=== PATIENT | female | born 1970 | race Caucasian/White ===

== ENCOUNTER 2024-11-24 09:59 | Emergency (ER) | payer OTHER, SELFPAY ==
--- NOTE | ~2024-11-24 | XR_ITS ---
Clinical Indication: Cough PA and lateral views of the chest: Comparison: None Findings: Questional subtle 6 mm right midlung nodule versus nipple shadow. Left lung clear. Cardiom ediastinal silhouette is within normal limits. Bones and soft tissues are unremarkable. Impression: Questionable subtle 6 mm right midlung nodule versus nipple shadow. Consider chest CT or repeat exam with nipple marker, to further assess. Reviewed, dictated and finalized at location . Impression: Questionable subtle 6 mm right midlung nodule versus nipple shadow. Consider ch est CT or repeat exam with nipple marker, to further assess.
--- OUTSIDE RECORDS SUMMARY | 2024-11-24 10:01 | XMS_ITS ---
Author Organization [facility] Address [address] [place] [address] Care Team Providers Care Foreign Agent Name Role Phone Johnny MILLAN, Dr Espino Primary Care Provider Kenan Rhodes Unavailable [phone] EnriqueYaniv Unavailable [phone] REASON FOR VISIT SCIT - Traditional Schedule Allergy Immunotherapy Medications Medication SIG (Take, Route, Frequency, Duration) Notes Start Date End Date Status Cetirizine HCl 10 MG 1 tab(s) orally once a day for 30 days Active TRIAMCINOLONE TOPICAL 0.1% 1 valery applied topically 3 times a day for 7 days Active VANICREAM MOISTURIZING CREAM N/A NECESSARY APPLY TO EXTERNAL SURFACES OFTEN NEEDED TO FACE, HANDS, FEET OR BODY FOR DAILY USE BY THE ENTIRE FAMILY for 30 DAYS *Please review for potential replacement for e-prescription and drug interaction check* Active Fluticasone Propionate 50 MCG/ACT 2 spray(s) in each nostril BID for 30 day(s) Active BENADRYL 25 mg 1 cap(s) orally 3 times a day Not-Taking FLUTICASONE NASAL 50 mcg/inh 2 spray(s) in each nostril BID for 30 day(s) Active CETIRIZINE 10 mg 1 tab(s) orally once a day for 30 days Active CETIRIZINE 10 mg 1 tab(s) orally once a day for 30 days Active FLUTICASONE NASAL 50 mcg/inh 2 spray(s) in each nostril BID for 30 day(s) Active AUVI -Q 0.3 mg as directed intramuscularly once for 30 days Active NASAL WASHES N/A DIRECTED INTRANASALLY NEEDED for 30 *Please review for potential replacement for e-prescription and drug interaction check* Active Auvi-Q 0.3 MG/0.3ML as directed intramuscularly once for 30 days Active Benadryl Allergy 25 MG 1 cap(s) orally 3 times a day Not-Taking SIT (TRADITIONAL) VARIABLE PER SCHEDULE SC PER SCHEDULE *Please review for potential replacement for e-prescription and drug interaction check* Active Triamcinolone Acetonide 0.1 % 1 valery applied topically 3 times a day for 7 days Active Encounters Encounter Location Date Provider Diagnosis [facility] [address] [facility] [address] [place] [id number] 10/17/2024 Yaniv Nunez Allergic rhinitis du e to pollen J30.1 ; Other allergic rhinitis J30.89 ; Allergic rhinitis due to animal (cat) (dog) hair and dander J30.81 and Other chronic allergic conjunctivitis H10.45 Assessments Encounter Date Diagnosis (ICD Code) Assessment Notes Treatment Notes Treatment Clinical Notes Section Notes 10/17/2024 Allergic rhinitis due to pollen (ICD-10 - J30.1) 10/17/2024 Other allergic rhinitis (ICD-10 - J30.89) 10/17/2024 Allergic rhinitis due to animal (cat) (dog) hair and dander (ICD-10 - J30.81) 10/17/2024 Other chronic allergic conjunctivitis (ICD-10 - H10.45) Plan Of Treatment Next Appt Details Follow Up: 1 Week, Reason: Provider Name:Yaniv Nunez , 12/20/2024 04:50:00 PM, [address] [employer] [address], [id number], Provider Name:Yaniv Nunez , 01/17/2025 04:50:00 PM, [address] [employer] [address] [place] [address], [phone], Progress Notes * Steffi ROBERTSONDOB:1970 ( 54 yo F)Acc No.[id number]:10/17/2024 SCIT-Aeroallergen Patient: Bijal COYNE Steffi Provider: Basim Nunez MD :1970 A ge:54 Y S ex:Female Date:10/17/2024 Address:[address] [place], [id number] Pcp:Dr Srinivas Turner MD Subjective: * Chief Complaints: * S CIT - Traditional Schedule Allergy Immunotherapy * HPI: * Introduction: The patient is here for scheduled immunotherapy. Please see the attached specialty form regarding the specifics of the administration of these vaccines. As per our protocol, they must undergo a screening health questionnaire (medication changes, reaction(s) to last immunotherapy dose(s), current health status, ACT (if appropriate), self-injectable epinephrine on patient(?) and peak flow (if appropriate)). Also, the patient must wait in our office for 30 minutes after receiving the vaccine(s). Furthermore, every patient must have an epinephrine pen (self-injectable) with them at the time of administration--and carry if for the following 1.5 hours after they leave our office. The patient must also have taken their antihistamine the day of the injection, preferably 2 hours prior. The consent form for SCIT (subcutaneous immunotherapy) is on file. * Medical History: * Surgical History: * Hospitalization/Major Diagno stic Procedure: * Medications: T akingCETIRIZINE 10 mg tablet 1 tab(s) orally once a day FLUTICASONE NASAL 50 mcg/inh spray 2 spray(s) in each nostril BID CETIRIZINE 10 mg tablet 1 tab(s) orally once a day FLUTICASONE NASAL 50 mcg/inh spray 2 spray(s) in each nostril BID AUVI -Q 0.3 mg kit as directed intramuscularly once TRIAMCINOLONE TOPICAL 0.1% ointment 1 valery applied topically 3 times a day Cetirizine HCl 10 MG Tablet 1 tab(s) orally once a day Fluticasone Propionate 50 MCG/ACT Suspension 2 spray(s) in each nostril BID VANICREAM MOISTURIZING CREAM N/A MOISTURIZING CREAM NECESSARY APPLY TO EXTERNAL SURFACES OFTEN NEEDED TO FACE, HANDS, FEET OR BODY FOR DAILY USE BY THE ENTIRE FAMILY , Notes to Pharmacist: *Please review for potential replacement for e-prescription and drug interaction check*Auvi-Q 0.3 MG/0.3ML Solution Auto- injector as directed intramuscularly once NASAL WASHES N/A 1 QUART OF STERILIZED TAP WATER OR DISTILLED WATER, 1 TSP NACL, 1 PINCH OF BAKING SODA DIRECTED INTRANASALLY NEEDED , Notes to Pharmacist: *Please review for potential replacement for e-prescription and drug interaction check*SIT (TRADITIONAL) VARIABLE SEE RECORD PER SCHEDULE SC PER SCHEDULE , Notes to Pharmacist: *Please review for potential replacement for e-prescription and drug interaction check*Triamcinolone Acetonide 0.1 % Ointment 1 valery applied topically 3 times a day Taking CETIRIZINE 10 mg tablet 1 tab(s) orally once a day Taking FLUTICASONE NASAL 50 mcg/inh spray 2 spray(s) in each nostril BID Taking CETIRIZINE 10 mg tablet 1 tab(s) orally once a day Taking FLUTICASONE NASAL 50 mcg/inh spray 2 spray(s) in each nostril BID Taking AUVI -Q 0.3 mg kit as directed intramuscularly once Taking TRIAMCINOLONE TOPICAL 0.1% ointment 1 valery applied topically 3 times a day Taking Cetirizine HCl 10 MG Tablet 1 tab(s) orally once a day Taking Fluticasone Propionate 50 MCG/ACT Suspension 2 spray(s) in each nostril BID Taking VANICREAM MOISTURIZING CREAM N/A MOISTURIZING CREAM NECESSARY APPLY TO EXTERNAL SURFACES OFTEN NEEDED TO FACE, HANDS, FEET OR BODY FOR DAILY USE BY THE ENTIRE FAMILY , Notes to Pharmacist: *Please review for potential replacement for e-prescription and drug interaction check*Taking Auvi- Q 0.3 MG/0.3ML Solution Auto-injector as directed intramuscularly once Taking NASAL WASHES N/A 1 QUART OF STERILIZED TAP WATER OR DISTILLED WATER, 1 TSP NACL, 1 PINCH OF BAKING SODA DIRECTED INTRANASALLY NEEDED , Notes to Pharmacist: *Please review for potential replacement for e-prescription and drug interaction check*Taking SIT (TRADITIONAL) VARIABLE SEE RECORD PER SCHEDULE SC PER SCHEDULE , Notes to Pharmacist: *Please review for potential replacement for e-prescription and drug interaction check*Taking Triamcinolone Acetonide 0.1 % Ointment 1 valery applied topically 3 times a day Not-Taking/PRNBENADRYL 25 mg capsule 1 cap(s) orally 3 times a day Benadryl Allergy 25 MG Capsule 1 cap(s) orally 3 times a day Not-Taking/PRN BENADRYL 25 mg capsule 1 cap(s) orally 3 times a day Not-Taking/PRN Benadryl Allergy 25 MG Capsule 1 cap(s) orally 3 times a day Objective: * Vitals: Assessment: * Assessment: 1. A llergic rhinitis due to pollen - J30.1 (Primary) 2 . O ther allergic rhinitis - J30.89 3 . A llergic rhinitis due to animal (cat) (dog) hair and dander - J30.81 4 . O ther chronic allergic conjunctivitis - H10.45 Plan: * Treatment: * Procedure Codes: 9 5117 IMMUNOTHERAPY INJECTIONS * Follow Up: 1 Week * Billing Information: * Visit Code: * Procedure Codes: 00289 IMMUNOTHERAPY INJECTIONS. * E CLERK [employer] Sign off status: Completed true * Provider: Basim Nunez MD Date: 0 10/17/2024 Generated for Joel torres/Mariah/Levi on: 0 11/24/2024 10:01 AM CDT History and Physical Notes * HPI (History of Present Illness) Category Sub-Category Detail Notes Category Not es *Introduction The patient is here for scheduled immunotherapy. Please see the attached specialty form regarding the specifics of the administration of these vaccines. As per our protocol, they must undergo a screening health questionnaire (medication changes, reaction(s) to last immunotherapy dose(s), current health status, ACT (if appropriate), self-injectable epinephrine on patient(?) and peak flow (if appropriate)). Also, the patient must wait in our office for 30 minutes after receiving the vaccine(s). Furthermore, every patient must have an epinephrine pen (self-injectable) with them at the time of administration--and carry if for the following 1.5 hours after they leave our office. The patient must also have taken their antihistamine the day of the injection, preferably 2 hours prior. The consent form for SCIT (subcutaneous immunotherapy) is on file.
--- OUTSIDE RECORDS SUMMARY | 2024-11-24 10:02 | XMS_ITS | Referral Summary ---
Author Organization [facility] Address [address] [place] [address] Care Team Providers Care Library Page Name Role Phone None, Physician Primary Care Provider Unavailabl e Source Comments [facility],non-owned Affiliates and Associated Physician Practices is amultiple site organization consisting of ambulatory clinics and hospital sitesin [place], [place], [place] and [place]. This disclosure is being madepursuant to the Care Everywhere program and may not contain all information available regarding this patient. Last updated 18.[facility] [employer] Allergies Active Allergy Reactions Criticality Noted Date Comments Molds & Smuts Other Medium 12/16/2010 Eczema flairs up, Eczema flairs up, Eczema flairs up Medications * Be aware that medications may not be up to date on this document. Alwaysverify current medications with the patient. Medication Sig Dispensed Refills Start Date End Date Status Hydrocortisone Butyr Lipo Base 0.1 %Indications:Other atopic dermatitis Apply to face daily as needed 30 g 1 07/21/2020 Active triamcinolone acetonide (Kenalog) 0.1 % ointmentIndications: Other atopic dermatitis Apply to affected area on torso and extremities BID. 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 Immunizations Name Administration Dates Next Due INFLUENZA VACCINE 06/02/2021 TDAP (7yrs+) 02/01/2020 Social History Tobacco Use Types Packs/Day Years Used Date Smoking Tobacco: Never Smokeless Tobacco: Never Alcohol Use Standard Drinks/Week Comments Yes 0 (1 standard drink = 0.6 oz pur e alcohol) Sex and Gender Information Value Date Recorded Sex Assigned at Not on file Gender Identity Not on file Sexual Orientation Not on file Last Filed Vital Signs Vital Sign Reading Time Taken Comments Blood Pressure 122/84 05/13/2017 1:05 AM CDT Pulse 86 05/13/2017 1:05 AM CDT Temperature 36.6 C (97.9 F) 05/13/2017 1:05 AM CDT Respiratory Rate 20 05/13/2017 1:05 AM CDT Oxygen Saturation 100% 05/13/2017 12:30 AM CDT Inhaled Oxygen Concentration - - Weight 56.7 kg (125 lb) 05/12/2017 9:02 PM CDT Height 160 cm (5' 3 ) 05/12/2017 9:02 PM CDT Body Mass Index 22.14 05/12/2017 9:02 PM CDT Plan of Treatment Not on file Care Teams Library Page Relationship Specialty Start Date End Date None, Physician [address] [place] [address] PCP - General 07/30/24
--- OUTSIDE RECORDS SUMMARY | 2024-11-24 10:02 | XMS_ITS | Patient Health Summary ---
Author Organization [facility] Address [address] [place] [address] Care Team Providers Care Glass Tube Bender Name Role Phone None, Physician Primary Care Provider Unavailabl e Note from [facility],non-owned Affiliates and Associated Physician Practices is amultiple site organization consisting of ambulatory clinics and hospital sitesin [place], [place], [place] and [place]. This disclosure is being madepursuant to the Care Everywhere program and may not contain all information available regarding this patient. Last updated 18.[facility] Allergies * Molds & Smuts(Other) -Medium Criticality Medications * Be aware that medications may not be up to date on this document. Alwaysverify current medications with the patient. * Hydrocortisone Butyr Lipo Base 0.1 %(Started 07/21/2020) Apply to face daily as needed 1 refill by 07/21/2021 * triamcinolone acetonide (Kenalog) 0.1 % ointment(Started 07/30/2024) Apply to affected area on torso and extremities BID. 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 Immunizations * INFLUENZA VACCINE(Given 06/02/2021) * TDAP (7yrs+)(Given 02/01/2020) Social History Tobacco Use Types Packs/Day Years [...] Mass Index 22.14 05/12/2017 9:02 PM CDT Procedures * MI TANGNTL BX SKIN SINGLE LES(Performed 07/30/2024) Performed for Neoplasm of uncertain behavior * DERMATOPATHOLOGY(Performed 07/30/2024) Performed for Neoplasm of uncertain behavior * HCG URINE QUALITATIVE - POCT (IP) [facility](Performed 05/13/2017) * URINALYSIS REFLEX TO MICROSCOPIC NO CULTURE(Performed 05/13/2017) * CBC W AUTO DIFFERENTIAL(Performed 05/12/2017) * GLUCOSE - POINT OF CARE (AMB) [facility](Performed 05/12/2017) * GLUCOSE - POINT OF CARE (AMB) [facility](Performed 05/12/2017) * CBC W AUTO DIFFERENTIAL(Performed 05/12/2017) * TROPONIN I(Performed 05/12/2017) * CK BLOOD(Performed 05/12/2017) * BASIC METABOLIC PANEL (CALCIUM TOTAL)(Performed 05/12/2017) * GLUCOSE ACCUCHECK(Performed 05/12/2017) * EKG 12-LEAD(Performed 05/12/2017) Results * MI TANGNTL BX SKIN SINGLE LES (07/30/2024 3:57 PM FIRE CHIEF DEPUTY) Narrative Marissa Comer PA - 07/30/2024 3:57 PM FIRE CHIEF DEPUTY BurkeVipul diazena 07/30/2024 4:08 PM Derm - Shave Biopsy Date/Time: 07/30/2024 3:57 PM Performed by: Marissa Comer PA Authorized by: Marissa Comer PA Indication(s): AK vs skin cancer vs eczematous papule Consent given by: patient Consent type: verbal Risks discussed with patient: bleeding, need for further testing/treatment, infection, scar formation, skin color change and non-diagnostic biopsy. Procedure details: Skin prep: isopropyl alcohol Anesthesia: lidocaine 1% with epi Body area 1: Body area: trunk Trunk location: back Lesions in this body area: 1 Total number of lesions: 1 Instrument(s) used: flexible razor blade Hemostasis achieved with aluminum chloride Wound dressing: petrolatum and gauze dressing EBL: less than 5 mL Complications: none Wound care discussed with patient? yes Specimen(s) sent to pathology Marissa CARTAGENA PROCEDURE/MINOR SURG ICAL ORDERABLES * DERMATOPATHOLOGY (Specimen Count = 1) (07/30/2024 12:00 AM FIRE CHIEF DEPUTY) Case Report Dermatopathology Report Case: [id number] Authorizing Provider: Marissa Comer PA Collected: 07/30/2024 12:00 AM Ordering Location: [facility] - Received: 07/30/2024 04:30 PM Dermatology Pathologist: Siobhan Altamirano MD Specimen: Skin, upper back 4:10 PM [facility] Final Diagnosis Specimen A. 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 The specimen consists of a shave biopsy measuring 7x6x1 mm. Jar 0. 4:10 PM [facility] Microscopic Description Specimen A. SKIN, upper back: There are scattered dyskeratotic keratinocytes and vacuolar alteration along the basal cell layer. In addition, an underlying band-like infiltrate composed mostly of lymphocytes focally obscures the dermal-epidermal junction. There is adjacent focal parakeratosis and spongiosis of the epidermis. Grocott's methenamine silver (GMS) stain is negative for fungal elements in the sections examined.Additional deeper sections were obtained and reviewed. COMMENT: These histological findings are favored to represent a lichen planus like keratosis with possible concurrent eczematous dermatitis. Clinical photos provided by the treating clinician were reviewed. Clinicopathologic correlation is recommended. 4 4:10 PM [facility] Disclaimer An external and internal positive and negative controls are appropriate for the histochemical, immunohistochemical and immunofluorescence stain(s) in this case (if any), except where stated explicitly. The performance characteristics of the stain(s) cited in this report were developed and its performance characteristic determined by the Dermatopathology Laboratory at [facility], directed by Dr. Tolu Velázquez. These tests need not be, and therefore are not, approved by the [place] Food and Drug Administration. The tests are used for clinical purposes. Billing Codes Specimen Charges Stain Charges 33716 1 02160 1 4 4:10 PM [facility] Embedded Images 4 4:10 PM [facility] Pathology/Cytolog y TISSUE SPECIMEN FROM SKIN / Unknown 07/30/2024 07/30/2024 4:30 PM FIRE CHIEF DEPUTY Marissa CARTAGENA LAB - PATHOLOGY/CYTO LOGY ORDERABLES DERMATOPATHOLOGY LABORATORY [facility] Department of Dermatology [address], [address] [phone] * HCG URINE QUALITATIVE - POCT (IP) [facility] (05/13/2017 12:06 AM CDT) Test Urine negative [facility] Urine specimen (specimen) 05/13/2017 12:06 AM CDT Narrative [facility] - 05/13/2017 12:06 AM CDT negative Inez Jonas MD LAB - POINT OF CARE ORDERABLES [facility] * (ABNORMAL) URINALYSIS REFLEX TO MICROSCOPIC NO CULTURE (05/13/2017 12:05 AM CDT) Color UA Straw Straw, Yellow, Colorless, Light Yellow [facility] Clarity UA Clear Clear [facility] Specific Gibson UA 1.002 1.001 - 1.030 [facility] pH UA 5.0 5.0 - 8.0 [facility] Protein UA Negative <=20 mg/dL [facility] Glucose UA Negative Negative mg/dL [facility] Ketone UA 15(A) Negative mg/dL [facility] Bilirubin UA Negative Negative mg/dL [facility] Blood UA Negative Negative [facility] Nitrite UA Negative Negative [facility] Leukocyte Esterase Negative Negative [facility] Urobilinogen UA <2.0 <2.0 mg/dL [facility] RBC UA 5 0 - 8 /HPF [facility] WBC UA 1 0 - 2 /HPF [facility] Squamous Epithelial Cells UA 1 0 - 1 /HPF [facility] Mucus UA Rare(A) None /LPF [facility] Urine specimen (specimen) 05/13/2017 12:05 AM CDT 05/13/2017 12:13 AM CDT Inez Jonas MD LAB - URINALYSIS ORD ERABLES [address] [phone] * (ABNORMAL) CBC W AUTO DIFFERENTIAL (05/12/2017 11:19 PM CDT) Only the most recent of2 resultswithin the time period is included. WBC 14.6(H) 3.5 - 10.5 10 3/uL [facility] RBC 3.96 3.90 - 5.00 10 6/uL [facility] Hemoglobin 12.7 12.0 - 15.5 g/dL [facility] Hematocrit 37.3 35.0 - 45.0 % [facility] MCV 94.2 81.0 - 97.0 fL [facility] MCH 32.1 28.0 - 34.0 pg [facility] MCHC 34.0 32.0 - 36.0 g/dL [facility] Platelet Count 135(L) 150 - 400 10 3/uL [facility] RDW-SD 44.1 36.0 - 50.0 fL [facility] RDW-CV 12.8 11.2 - 14.8 % [facility] MPV 12.3 9.3 - 12.8 fL [facility] nRBC Absolute 0.00 0 10 3/uL [facility] nRBC Auto 0.0 0 /100 WBC [facility] Neutrophils % 85.8(H) 35.0 - 70.0 % [facility] Lymphocytes % 4.5(L) 19.7 - 55.1 % [facility] Monocytes % 9.5 3.0 - 15.0 % [facility] Eosinophils % 0.1 0.0 - 6.0 % [facility] Basophil % 0.1 0.0 - 1.5 % [facility] Neutrophils Absolute 12.5(H) 1.6 - 7.0 10 3/uL [facility] Lymphocyte Absolute 0.7(L) 0.8 - 2.9 10 3/uL [facility] Monocytes Absolute 1.39(H) 0.14 - 0.66 10 3/uL [facility] Eosinophils Absolute 0.01 0.00 - 0.22 10 3/uL [facility] Basophils Absolute 0.01 0.00 - 0.06 10 3/uL [facility] Immature Granulocytes % 0.3 0.0 - 1.0 % [facility] Blood specimen (specimen) BLOOD SPECIMEN / Unknown 05/12/2017 11:19 PM CDT 05/12/2017 11:23 PM CDT Inez Jonas MD LAB - HEMATOLOGY ORD ERABLES [address] [phone] * GLUCOSE - POINT OF CARE (AMB) [facility] (05/12/2017 11:19 PM CDT) Only the most recent of2 resultswithin the time period is included. Inez Jonas MD LAB - POINT OF CARE ORDERABLES [facility] RADIOLOG[facility] * TROPONIN I (05/12/2017 11:18 PM CDT) Troponin I 0.015 <0.032 ng/mL [facility] Blood specimen (specimen) BLOOD SPECIMEN / Unknown 05/12/2017 11:18 PM CDT 05/12/2017 11:23 PM CDT Inez Jonas MD LAB - CHEMISTRY [facility] Performing Organization Address [facility]/ZIP Co de Phone Number [address] [phone] * (ABNORMAL) BASIC METABOLIC PANEL (CALCIUM TOTAL) (05/12/2017 11:18 PM CDT) BUN 16 7 - 26 mg/dL [facility] Creatinine 1.1 0.6 - 1.2 mg/dL [facility] Sodium 140 136 - 145 mmol/L [facility] Potassium 3.7 3.5 - 4.5 mmol/L [facility] Chloride 108(H) 98 - 107 mmol/L [facility] CO2 20(L) 22 - 29 mmol/L [facility] Glucose 78 70 - 115 mg/dL [facility] Calcium 8.6 8.4 - 10.2 mg/dL [facility] Anion Gap 16 8 - 18 [facility] BUN/Creatinine Ratio 15 7 - 23 [facility] Osmolality Calculated 290 270 - 300 mOsm/kg [facility] eGFR 53(L) >60 mL/min/1.7 3 m2 [facility] Blood specimen (specimen) BLOOD SPECIMEN / Unknown 05/12/2017 11:18 PM CDT 05/12/2017 11:23 PM CDT Inez Jonas MD LAB - CHEMISTRY [facility] DORSY[facility] [address] [phone] * (ABNORMAL) CK BLOOD (05/12/2017 11:18 PM CDT) CK Total 204(H) 30 - 200 Units/L [facility] Blood specimen (specimen) BLOOD SPECIMEN / Unknown 05/12/2017 11:18 PM CDT 05/12/2017 11:23 PM CDT Inez Jonas MD LAB - CHEMISTRY [facility] DOR[facility] [address] [place] [address] * GLUCOSE ACCUCHECK (05/12/2017 11:14 PM CDT) Glucose, Fingerstick 82 70-115mg/d L mg/dL [facility] Comment:[employer]: PHAM Gu 05/12/2017 11:1 4 PM CDT Ayush Romo MD LAB - CHEMISTRY [facility] Performing Organization Address [facility] Co de Phone Number [facility] * EKG 12-LEAD (05/12/2017 12:00 AM CDT) EKG [facility] Comment: Exam Date/Time: May 12 2017 23:18:19 Test Reason : syncope Blood Pressure : / mmHG Vent. Rate : 068 BPM Atrial Rate : 068 BPM P-R Int : 148 ms QRS Dur : 074 ms QT Int : 456 ms P-R-T Axes : 071 057 040 degrees QTc Int : 484 ms Normal sinus rhythm Possible Left atrial enlargement Prolonged QT Abnormal ECG No previous ECGs available Confirmed by CHANG MILLAN, P ([id number]), video news editor Mesfin Granados ([id number]) on 05/22/2017 10:49:04 AM Referred By: REFERRING NO Confirmed By:Basim DOWNING MD 05/12/2017 Inez Jonas MD ECG ORDERABLES [facility] Care Teams Glass Tube Bender Relationship Specialty Start Date End Date None, Physician [address] [place] [address] PCP - General 07/30/24
--- OUTSIDE RECORDS SUMMARY | 2024-11-24 10:02 | XMS_ITS | Clinical Summary ---
Author Organization [facility] Address [address] [place] [address] Care Team Providers Care Swedger Name Role Phone Srinivas Turner MD Primary Care Provider [phone] Allergies No known active allergies Medications No known medications Active Problems Problem Noted Date Diagnosed Date Screen for colon cancer 09/22/2021 Overview (09/22/2021): Added automatically from request for surgery [id number] Family History Medical History Relation Comments Breast Cancer Maternal Aunt 1 Breast Cancer Maternal Aunt 2 Relation Status Comments Maternal Aunt 1 Maternal Aunt 2 Social History Tobacco Use Types Packs/Day Years Used Date Smoking Tobacco: Never Smokeless Tobacco: Never Alcohol Use Standard Drinks/Week Comments Yes 0 (1 standard drink = 0.6 oz pur e alcohol) Socially PHQ-2 Answer Date Recorded PHQ-2 Score - If the patient scores above 3, please move on to questions 3-9 0 09/18/2021 Comments No Sex and Gender Information Value Date Recorded Sex Assigned at Not on file Legal Sex Female 7:59 PM CDT Gender Identity Female 09/18/2021 3:50 PM BEHAVIORAL SERVICES TECH Sexual Orientation Not on file Last Filed Vital Signs Vital Sign Reading Time Taken Comments Blood Pressure 134/80 10/02/2021 12:15 PM BEHAVIORAL SERVICES TECH Pulse 92 10/02/2021 11:30 AM BEHAVIORAL SERVICES TECH Temperature 36.2 C (97.2 F) 10/02/2021 11:30 AM BEHAVIORAL SERVICES TECH Respiratory Rate 20 10/02/2021 11:30 AM BEHAVIORAL SERVICES TECH Oxygen Saturation 100% 10/02/2021 12:15 PM BEHAVIORAL SERVICES TECH Inhaled Oxygen Concentration - - Weight 59 kg (130 lb) 09/25/2021 1:10 PM BEHAVIORAL SERVICES TECH Height 160 cm (5' 3 ) 09/25/2021 1:10 PM BEHAVIORAL SERVICES TECH Body Mass Index 23.03 09/25/2021 1:10 PM BEHAVIORAL SERVICES TECH Plan of Treatment Health Maintenance Due Date Last Done Comments Cervical Cancer Screening Pa p Smear (Age 30 to 64) Every 3 Years 1970 Annual Physical 1973 Hepatitis C 1988 Hepatitis B Vaccines (1 of 3 - 19+ 3-dose series) 1989 Cervical Cancer Screening Pa p with HPV Testing (Age 30 to 64) Every 5 Years 2000 Cervical Cancer Screening wi th HPV 2000 Zoster Vaccines (1 of 2) 2020 COVID-19 Vaccine (2023-2 5 season) 2024 08/15/2021, 12/29/2020, 12/01/2020 Influenza Adult (#1) 2024 06/08/2023, 06/02/2021, 08/24/2020 Mammogram Screening 07/18/2025 07/18/2023, 04/23/2022, 05/01/2020 DTaP, Tdap and Td Vaccines ( 2 - Td or Tdap) 01/31/2030 02/01/2020 Colorectal Cancer Screening Colonoscopy (10 Years) 10/02/2031 10/02/2021 Meningococcal B Vaccine Aged Out No l onger eligible based on patient's age to complete this topic Meningococcal Vaccine Aged Out No lacy jj eligible based on patient's age to complete this topic Pneumococcal Vaccine: Pediatrics (0 to 5 Years) and At-Risk Patients (6 to 64 Years) Aged Out No longer eligible b ased on patient's age to complete this topic RSV Immunizations Under 20 Months Aged Out No longer eligible b ased on patient's age to complete this topic Procedures Procedure Name Priority Date/Time Associated Diagnosis Comments MG SCREENING W EFREM DAVID DIGI Routine 07/18/2023 3:43 PM BEHAVIORAL SERVICES TECH Visit for screening mammogram from Last 3 Months or Most Recently Relevant to Health Maintenance Results * MG SCREENING W EFREM DAVID DIGI (07/18/2023 3:43 PM BEHAVIORAL SERVICES TECH) Anatomical Region Laterality Modality Breast Bilateral Mammography 07/18/2023 4:38 PM BEHAVIORAL SERVICES TECH Narrative 07/18/2023 4:43 PM BEHAVIORAL SERVICES TECH IMAGING STUDIES: Bilateral screening mammograms with computer-aided detection with 2-D and 3-D imaging. Tomosynthesis. DATE: 07/18/2023 3:24 PM HISTORY: visit for screening mammo . COMPARISON: 05/01/2020. 04/23/2022. TISSUE TYPE: The breast tissue is heterogeneously dense, which may obscure small masses. FINDINGS: 1. Moderate fibroglandular tissue pattern is present. Benign nodularity. Benign calcifications. 2. No malignant microcalfcifications, new dominant masses, or architectural distortion. 3. No skin thickening or nipple retraction. Axillary regions are within normal limits. IMPRESSION: 1. No mammographic evidence of malignancy. 2. Assessment: ACR BI-RADS 2 - BENIGN FINDING(S) 3 .Routine Screening Bilateral MQSA BI-RADS Categories: Category 0 - needs additional imaging evaluation. Category 1 - negative. Category 2 - benign findings. Category 3 - probably benign findings, but short interval follow-up is recommended. Category 4 - suspicious abnormality and biopsy should be considered though the lesion may well be benign. Category 5 - highly suggestive of malignancy and appropriate action should be taken. Category 6 - known biopsy-proven malignancy A) A negative report should not delay a biopsy if a dominant or clinically suspicious mass is present. B) Adenosis and dense breasts may obscure an underlying neoplasm. C) Study interpreted with computer aided detection. Ordered By: SOWMYA ALEXANDER Interpreted By: Regina Mackey, 07/18/2023 4:38 PM us Sowmya Alexander MD MAMMO Final Result from Last 3 Months or Most Recently Relevant to Health Maintenance Insurance [facility] Care Teams Swedger Relationship Specialty Start Date End Date Srinivas Turner MD [address] [place] [address] [phone] PCP - General FAMILY PRACTICE 07/18/23
--- OUTSIDE RECORDS SUMMARY | 2024-11-24 10:02 | XMS_ITS | Clinical Summary ---
Author Organization [facility] [employer] Address [address] [place] [address] Care Team Providers Care Calender Let Off Operator Name Role Phone None, Physician Primary Care Provider Unavailabl e Source Comments [facility] [employer],non-owned Affiliates and Associated Physician Practices is amultiple site organization consisting of ambulatory clinics and hospital sitesin [place], [place], [place] and [place]. This disclosure is being madepursuant to the Care Everywhere program and may not contain all information available regarding this patient. Last updated 18.[facility] [employer] Allergies Active Allergy Reactions Criticality Noted Date [...] Due INFLUENZA VACCINE 06/02/2021 TDAP (7yrs+) 02/01/2020 Family History Medical History Relation Name Comments Allergy (Severe) Neg Hx Asthma Neg Hx CVA Neg Hx Cancer Neg Hx Cancer - Breast Neg Hx Cancer - Other Neg Hx Cancer - Skin, Melanoma Neg Hx Cancer - Skin, Non Melanoma Neg Hx Eczema Neg Hx Hemophilia Neg Hx Psoriasis Neg Hx Rashes/Skin Problems Neg Hx Social History Tobacco Use Types Packs/Day Years [...] 05/12/2017 9:02 PM CDT Plan of Treatment Health Maintenance Due Date Last Done Comments COLOGUARD (AGES 45-75) - COLON CA SCREENING 1970 COLON MONITORING 1970 COLONOSCOPY - COLON CA SCREENING 1970 CT COLONOGRAPHY - COLON CA SCREENING 1970 Colorectal Cancer Screening 1970 FIT - COLON CA SCREENING 1970 FLEX SIG - COLON CA SCREENING 1970 LIPID TESTING 1970 PAP SMEAR 1970 HIV SCREENING 1985 HEPATITIS C SCREENING 05/13/1988 HEPATITIS B VACCINE (1 of 3 - 19+ 3-dose series) 1989 PNEUMOCOCCAL VACCINE 50+ (1 of 1 - PCV) 2020 ZOSTER VACCINE (1 of 2) 2020 COVID-19 VACCINE (1 - 2023- season) 2024 INFLUENZA VACCINE (#1) 2024 06/02/2021 DEPRESSION SCREENING 09/12/2024 MAMMOGRAM 07/18/2025 07/18/2023, 02/2023, 04/23/2022, Additional history exists DTAP/TDAP/TD VACCINES (2 - Td or Tdap) 01/31/2030 02/01/2020 HIB VACCINE Aged Out No longer eligi ble based on patient's age to complete this topic HPV VACCINE Aged Out No longer eligi ble based on patient's age to complete this topic MENINGOCOCCAL (Group B) VACCINE SHARED DECISION-MAKING Aged Out No longer eligible based on patient's age to complete this topic MENINGOCOCCAL GROUPS A/C/Y/W VACCINE Aged Out No longer eligible based on patient's age to complete this topic PNEUMOCOCCAL VACCINE Aged Out No long er eligible based on patient's age to complete this topic Care Teams Calender Let Off Operator Relationship Specialty Start Date End Date None, Physician [address] [place] [address] PCP - General 07/30/24
--- OUTSIDE RECORDS SUMMARY | 2024-11-24 10:02 | XMS_ITS ---
Author Organization [facility] Address [address] [place] [address] Care Team Providers Care Loader Helper Sorting Yard Name Role Phone Johnny MILLAN, Dr Espino Primary Care Provider Kenan Rhodes Unavailable [phone] Enrique Yaniv Unavailable [phone] REASON FOR VISIT [facility] - Traditional Schedule Allergy Immunotherapy Medications Medication SIG (Take, Route, Frequency, Duration) Notes Start Date End Date Status FLUTICASONE NASAL 50 mcg/inh 2 spray(s) in each nostril BID for 30 day(s) Active CETIRIZINE 10 mg 1 tab(s) orally once a day for 30 days Active Benadryl Allergy 25 MG 1 cap(s) orally 3 times a day Not-Taking CETIRIZINE 10 mg 1 tab(s) orally once a day for 30 days Active Triamcinolone Acetonide 0.1 % 1 valery applied topically 3 times a day for 7 days Active SIT (TRADITIONAL) VARIABLE PER SCHEDULE SC PER SCHEDULE *Please review for potential replacement for e-prescription and drug interaction check* Active Auvi-Q 0.3 MG/0.3ML as directed intramuscularly once for 30 days Active NASAL WASHES N/A DIRECTED INTRANASALLY NEEDED for 30 *Please review for potential replacement for e-prescription and drug interaction check* Active VANICREAM MOISTURIZING CREAM N/A NECESSARY APPLY [...] cap(s) orally 3 times a day Not-Taking TRIAMCINOLONE TOPICAL 0.1% 1 valery applied topically 3 times a day for 7 days Active FLUTICASONE NASAL 50 mcg/inh 2 spray(s) in each nostril BID for 30 day(s) Active AUVI -Q 0.3 mg as directed intramuscularly once for 30 days Active Cetirizine HCl 10 MG 1 tab(s) orally once a day for 30 days Active Encounters Encounter Location Date Provider Diagnosis [facility] [place] [facility] [address] [place] [phone] 11/19/2024 Yaniv Nunez Allergic rhinitis du e to pollen J30.1 ; Other allergic rhinitis J30.89 ; Allergic rhinitis due to animal (cat) (dog) hair and dander J30.81 and Other chronic allergic conjunctivitis H10.45 Assessments Encounter Date Diagnosis (ICD Code) Assessment Notes Treatment Notes Treatment Clinical Notes Section Notes 11/19/2024 Allergic rhinitis due to pollen (ICD-10 - J30.1) 11/19/2024 Other allergic rhinitis (ICD-10 - J30.89) 11/19/2024 Allergic rhinitis due to animal (cat) (dog) hair and dander (ICD-10 - J30.81) 11/19/2024 Other chronic allergic conjunctivitis (ICD-10 - H10.45) Plan Of Treatment Next Appt Details Follow Up: 1 Week, Reason: Provider Name:Yaniv Nunez , 12/20/2024 04:50:00 PM, [address] [facility], [address], [phone], Provider Name:Yaniv Nunez , 01/17/2025 04:50:00 PM, [address] [facility], [address] [place] [address], [phone], Progress Notes * Steffi ROBERTSONDOB:1970 ( 54 yo F)Acc No.[id number]:11/19/2024 [facility]-Aeroallergen Patient: Bijal COYNE Steffi Provider: Basim Nunez MD :1970 A ge:54 Y S ex:Female Date:11/19/2024 Address:[address] [place] [place], [phone] Pcp:Dr Srinivas Turner MD Subjective: * Chief [...] Information: * Visit Code: * Procedure Codes: 81314 IMMUNOTHERAPY INJECTIONS. * Sign off status: Completed true * Provider: Basim Nunez MD Date: 0 11/19/2024 Generated for Joel torres/Mariah/Levi on: 0 11/24/2024 10:02 AM CDT History and Physical Notes * [...]
--- OUTSIDE RECORDS SUMMARY | 2024-11-24 10:02 | XMS_ITS ---
Author Organization [facility] Address [address] [place] [address] Care Team Providers Care Skidway Man Name Role Phone Johnny MILLAN, Dr Espino Primary Care Provider Kenan Rhodes Unavailable [phone] Yaniv Nunez [phone] REASON FOR VISIT SCIT - Traditional Schedule Allergy Immunotherapy Encounters Encounter Location Date Provider Diagnosis [facility] [address] [place] [address] 11/15/2024 Yaniv Nunez Allergic rhinitis du e to pollen J30.1 ; Other allergic rhinitis J30.89 ; Allergic rhinitis due to animal (cat) (dog) hair and dander J30.81 and Other chronic allergic conjunctivitis H10.45 Assessments Encounter Date Diagnosis (ICD Code) Assessment Notes Treatment Notes Treatment Clinical Notes Section Notes 11/15/2024 Allergic rhinitis due to pollen (ICD-10 - J30.1) 11/15/2024 Other allergic rhinitis (ICD-10 - J30.89) 11/15/2024 Allergic rhinitis due to animal (cat) (dog) hair and dander (ICD-10 - J30.81) 11/15/2024 Other chronic allergic conjunctivitis (ICD-10 - H10.45) Plan Of Treatment Next Appt Details Follow Up: 1 Week, Reason: Provider Name:Yaniv Nunez , 12/20/2024 04:50:00 PM, [address], [address], [place], [address], Provider Name:Yaniv Nunez , 01/17/2025 04:50:00 PM, [address] [facility], [address], [place], [address], Progress Notes * Steffi ROBERTSONDOB:1970 ( 54 yo F)Acc No.[id number]:11/15/2024 SCIT-Aeroallergen Patient: Steffi DURON Provider: Basim Nunez MD :1970 A ge:54 Y S ex:Female Date:11/15/2024 [facility] Pcp:Dr Srinivas Turner MD Subjective: * Chief Complaints: * 1 . SCIT - Traditional Schedule Allergy Immunotherapy. * HPI: * Introduction: The patient is [...] immunotherapy) is on file. * Medical History: Objective: * Vitals: Assessment: * Assessment: 1. A llergic rhinitis due to pollen - J30.1 (Primary) 2 . O ther allergic rhinitis - J30.89 3 . A llergic rhinitis due to animal (cat) (dog) hair and dander - J30.81 4 . O ther chronic allergic conjunctivitis - H10.45 Plan: * Treatment: * Follow Up: 1 Week * Billing Information: * Visit Code: * Procedure Codes: 25532 IMMUNOTHERAPY INJECTIONS. * Electronic signature of Karie Nunez MD, FAAAAI on 11/24/2024 at 10:01 AM CDT Sign off status: Pending * Provider: Basim Nunez MD Date: 0 11/15/2024 Generated for Joel torres/Mariah/Levi on: 0 11/24/2024 [...]
--- OUTSIDE RECORDS SUMMARY | 2024-11-24 10:03 | XMS_ITS | Patient Health Record ---
Author Organization [facility] Address [address] [place] [address] Care Team Providers Care Department Store Salesperson Name Role Phone Johnny MILLAN, Dr Espino Primary Care Provider Kenan Rhodes Unavailable [phone] Yaniv Nunez Unavailable [phone] [employer], Provider Unavailable Unavailab le Allergies No Known Allergies Reason For Referral No Information Medications Medication SIG (Take, Route, Frequency, Duration) Notes Start Date End Date Status FLUTICASONE NASAL 50 mcg/inh 2 spray(s) in each nostril BID for 30 day(s) Active SIT (TRADITIONAL) VARIABLE PER SCHEDULE SC PER SCHEDULE *Please review for potential replacement for e-prescription and drug interaction check* Active CETIRIZINE 10 mg 1 tab(s) orally once a day for 30 days Active Benadryl Allergy 25 MG 1 cap(s) orally 3 times a day Not-Taking Auvi-Q 0.3 MG/0.3ML as directed intramuscularly once for 30 days Active CETIRIZINE 10 mg 1 tab(s) orally once a day for 30 days Active NASAL WASHES N/A DIRECTED INTRANASALLY NEEDED for 30 *Please review for potential replacement for e-prescription and drug interaction check* Active BENADRYL 25 mg 1 cap(s) orally 3 times a day Not-Taking TRIAMCINOLONE TOPICAL 0.1% 1 valery applied topically 3 times a day for 7 days Active FLUTICASONE NASAL 50 mcg/inh 2 spray(s) in each nostril BID for 30 day(s) Active Triamcinolone Acetonide 0.1 % 1 valery applied topically 3 times a day for 7 days Active AUVI -Q 0.3 mg as directed intramuscularly once for 30 days Active VANICREAM MOISTURIZING CREAM N/A NECESSARY APPLY TO EXTERNAL SURFACES OFTEN NEEDED TO FACE, HANDS, FEET OR BODY FOR DAILY USE BY THE ENTIRE FAMILY for 30 DAYS *Please review for potential replacement for e-prescription and drug interaction check* Active Cetirizine HCl 10 MG 1 tab(s) orally once a day for 30 days Active Fluticasone Propionate 50 MCG/ACT 2 spray(s) in each nostril BID for 30 day(s) Active Social History Tobacco Use: Social History Observation Description Date Details (start date - stop date) Never Smoker NA - NA Smoking Smart Form: Question Answer Notes Are you a: never smoker Tobacco Control (Standard) Question Answer Notes Tobacco use: Nonsmoker Problems Problem Type SNOMED Code ICD Code Onset Dates Problem Status W/U Status Risk Notes Problem Chronic allergic conjunctivitis (39265217) Other chronic allergic conjunctivitis (H10.45) Active confirmed Problem Allergic rhinitis caused by pollen (disorder) (05291991) Allergic rhinitis due to pollen (J30.1) Active confirmed Problem Allergic rhinitis (92169095) Other allergic rhinitis (J30.89) Active confirmed Problem Atopic dermatitis (41672497) Atopic dermatitis, unspecified (L20.9) Active confirmed Problem Xerosis cutis (61094404) Xerosis cutis (L85.3) Active confirmed Problem Allergic rhinitis caused by pollen (disorder) (81253534) Allergic rhinitis due to pollen (J30.1) Active confirmed Problem Allergic rhinitis caused by animal hair and dander (629378624406862) Allergic rhinitis due to animal (cat) (dog) hair and dander (J30.81) Active confirmed Problem Allergic rhinitis (48268473) Other allergic rhinitis (J30.89) Active confirmed Problem Chronic allergic conjunctivitis (15762586) Other chronic allergic conjunctivitis (H10.45) Active confirmed Problem Elevated blood pressure reading without diagnosis of hypertension (744258282) Elevated blood-pressure reading, without diagnosis of hypertension (R03.0) Active confirmed Vital Signs Oximetry 97 % 01/09/2024 Blood pressure diastolic 81 mm Hg 01/09/2024 Height 63 in 01/09/2024 Blood pressure systolic 129 mm Hg 01/09/2024 Weight 138.8 lbs 01/09/2024 BMI 24.58 kg/m2 01/09/2024 Encounters Encounter Location Date Provider Diagnosis [facility] [address] [place] [address] 02/25/2024 Provider Tasha Allergic rhinitis due to pollen J30.[address] [address] 12/08/2023 Yaniv Nunez Allergic rhinitis du e to pollen J30.1 ; Other allergic rhinitis J30.89 ; Allergic rhinitis due to animal (cat) (dog) hair and dander J30.81 and Other chronic allergic conjunctivitis H10.[address] [address] 01/09/2024 Kenan Zambrano Allergic rhinitis du e to pollen J30.1 ; Allergic rhinitis due to animal (cat) (dog) hair and dander J30.81 ; Other allergic rhinitis J30.89 ; Other chronic allergic conjunctivitis H10.45 ; Atopic dermatitis, unspecified L20.9 ; Xerosis cutis L85.3 and Elevated blood-pressure reading, without diagnosis of hypertension R03.[address] [address] 02/09/2024 Yaniv Nunez Allergic rhinitis du e to pollen J30.1 ; Other allergic rhinitis J30.89 ; Allergic rhinitis due to animal (cat) (dog) hair and dander J30.81 and Other chronic allergic conjunctivitis H10.[address] [address] 03/08/2024 Yaniv Nunez Allergic rhinitis du e to pollen J30.1 ; Other allergic rhinitis J30.89 ; Allergic rhinitis due to animal (cat) (dog) hair and dander J30.81 and Other chronic allergic conjunctivitis H10.[address] [address] 04/05/2024 Yaniv Nunez Allergic rhinitis du e to pollen J30.1 ; Other allergic rhinitis J30.89 ; Allergic rhinitis due to animal (cat) (dog) hair and dander J30.81 and Other chronic allergic conjunctivitis H10.45 [facility] [address] [place] [address] [place] [address] 05/08/2024 Yaniv Enrique Allergic rhinitis du e to pollen J30.1 ; Other allergic rhinitis J30.89 ; Allergic rhinitis due to animal (cat) (dog) hair and dander J30.81 and Other chronic allergic conjunctivitis H10.45 [facility] [address] [place] [address] 05/15/2024 Yaniv Nunez Allergic rhinitis du e to pollen J30.1 ; Other allergic rhinitis J30.89 ; Allergic rhinitis due to animal (cat) (dog) hair and dander J30.81 and Other chronic allergic conjunctivitis H10.45 [facility] [address] [place] [address] 05/21/2024 Yaniv Enrique Allergic rhinitis du e to pollen J30.1 ; Other allergic rhinitis J30.89 ; Allergic rhinitis due to animal (cat) (dog) hair and dander J30.81 and Other chronic allergic conjunctivitis H10.45 [facility] [address] [place] [address] [employer] [address] [address] 06/18/2024 Yaniv Enrique Allergic rhinitis du e to pollen J30.1 ; Other allergic rhinitis J30.89 ; Allergic rhinitis due to animal (cat) (dog) hair and dander J30.81 and Other chronic allergic conjunctivitis H10.45 [facility] [address] [place] [address] 07/23/2024 Yanivedsiree Nunez Allergic rhinitis du e to pollen J30.1 ; Other allergic rhinitis J30.89 ; Allergic rhinitis due to animal (cat) (dog) hair and dander J30.81 and Other chronic allergic conjunctivitis H10.45 [facility] [address] [place] [address] 08/30/2024 Yanivdesiree Nunez Allergic rhinitis du e to pollen J30.1 ; Other allergic rhinitis J30.89 ; Allergic rhinitis due to animal (cat) (dog) hair and dander J30.81 and Other chronic allergic conjunctivitis H10.45 [facility] [address] [place] [address] 09/20/2024 Yaniv Nunez Allergic rhinitis du e to pollen J30.1 ; Other allergic rhinitis J30.89 ; Allergic rhinitis due to animal (cat) (dog) hair and dander J30.81 and Other chronic allergic conjunctivitis H10.45 [facility] [address] [place] [address] 10/17/2024 Yaniv Nunez Allergic rhinitis du e to pollen J30.1 ; Other allergic rhinitis J30.89 ; Allergic rhinitis due to animal (cat) (dog) hair and dander J30.81 and Other chronic allergic conjunctivitis H10.45 [facility] [address] [place] [address] 11/19/2024 Yaniv Nunez Allergic rhinitis du e to pollen J30.1 ; Other allergic rhinitis J30.89 ; Allergic rhinitis due to animal (cat) (dog) hair and dander J30.81 and Other chronic allergic conjunctivitis H10.[address] [address] 05/07/2024 Kenan Zambrano Assessments Encounter Date Diagnosis (ICD Code) Assessment Notes Treatment Notes Treatment Clinical Notes Section Notes 12/08/2023 Allergic rhinitis due to pollen (ICD-10 - J30.1) 01/09/2024 Allergic rhinitis due to pollen (ICD-10 - J30.1) Steffi clearly suffers from atopic disease based upon our skin testing and clinical history. Accordingly, we have introduced a new, aggressive medication regimen, discussed nasal washes and allergy-specific avoidance measures. She continues on SCIt with continued noted improvmeent. Procedure today was tolerated without large local or systemic reaction Now on MM is noted imporvement. Keep AIE on hand 2 hours after SCIT. Continue premedicate with Zyrtec. Increase SCIT frequency in peak seasons PRN. Follow-up per schedule for SCIT and 6 months for E&M 01/09/2024 Allergic rhinitis due to animal (cat) (dog) hair and dander (ICD-10 - J30.81) Follow allergen avoidance, meds and continue SCIT as an adjunctive treatment to current regimen 02/09/2024 Allergic rhinitis due to pollen (ICD-10 - J30.1) 02/25/2024 Allergic rhinitis due to pollen (ICD-10 - J30.1) 03/08/2024 Allergic rhinitis due to pollen (ICD-10 - J30.1) 04/05/2024 Allergic rhinitis due to pollen (ICD-10 - J30.1) 05/08/2024 Allergic rhinitis due to pollen (ICD-10 - J30.1) 05/15/2024 Allergic rhinitis due to pollen (ICD-10 - J30.1) 05/21/2024 Allergic rhinitis due to pollen (ICD-10 - J30.1) 06/18/2024 Allergic rhinitis due to pollen (ICD-10 - J30.1) 07/23/2024 Allergic rhinitis due to pollen (ICD-10 - J30.1) 08/30/2024 Allergic rhinitis due to pollen (ICD-10 - J30.1) 09/20/2024 Allergic rhinitis due to pollen (ICD-10 - J30.1) 10/17/2024 Allergic rhinitis due to pollen (ICD-10 - J30.1) 11/19/2024 Allergic rhinitis due to pollen (ICD-10 - J30.1) 10/17/2024 Other allergic rhinitis (ICD-10 - J30.89) 09/20/2024 Other allergic rhinitis (ICD-10 - J30.89) 08/30/2024 Other allergic rhinitis (ICD-10 - J30.89) 11/19/2024 Other allergic rhinitis (ICD-10 - J30.89) 07/23/2024 Other allergic rhinitis (ICD-10 - J30.89) 06/18/2024 Other allergic rhinitis (ICD-10 - J30.89) 05/21/2024 Other allergic rhinitis (ICD-10 - J30.89) 05/15/2024 Other allergic rhinitis (ICD-10 - J30.89) 05/08/2024 Other allergic rhinitis (ICD-10 - J30.89) 04/05/2024 Other allergic rhinitis (ICD-10 - J30.89) 03/08/2024 Other allergic rhinitis (ICD-10 - J30.89) 02/09/2024 Other allergic rhinitis (ICD-10 - J30.89) 12/08/2023 Other allergic rhinitis (ICD-10 - J30.89) 01/09/2024 Other allergic rhinitis (ICD-10 - J30.89) Follow allergen avoidance, meds and continue SCIT as an adjunctive treatment to current regimen 12/08/2023 Allergic rhinitis due to animal (cat) (dog) hair and dander (ICD-10 - J30.81) 01/09/2024 Other chronic allergic conjunctivitis (ICD-10 - H10.45) Given ocular signs and symptoms I encouraged allergy avoidance measures and meds as above. If symptoms persist, continue adding additional medications including intraocular antihistamine/ma st cell stabilizer, PRN and consider SCIT as an adjunctive measure 02/09/2024 Allergic rhinitis due to animal (cat) (dog) hair and dander (ICD-10 - J30.81) 03/08/2024 Allergic rhinitis due to animal (cat) (dog) hair and dander (ICD-10 - J30.81) 04/05/2024 Allergic rhinitis due to animal (cat) (dog) hair and dander (ICD-10 - J30.81) 05/08/2024 Allergic rhinitis due to animal (cat) (dog) hair and dander (ICD-10 - J30.81) 05/15/2024 Allergic rhinitis due to animal (cat) (dog) hair and dander (ICD-10 - J30.81) 05/21/2024 Allergic rhinitis due to animal (cat) (dog) hair and dander (ICD-10 - J30.81) 06/18/2024 Allergic rhinitis due to animal (cat) (dog) hair and dander (ICD-10 - J30.81) 07/23/2024 Allergic rhinitis due to animal (cat) (dog) hair and dander (ICD-10 - J30.81) 08/30/2024 Allergic rhinitis due to animal (cat) (dog) hair and dander (ICD-10 - J30.81) 09/20/2024 Allergic rhinitis due to animal (cat) (dog) hair and dander (ICD-10 - J30.81) 10/17/2024 Allergic rhinitis due to animal (cat) (dog) hair and dander (ICD-10 - J30.81) 11/19/2024 Allergic rhinitis due to animal (cat) (dog) hair and dander (ICD-10 - J30.81) 11/19/2024 Other chronic allergic conjunctivitis (ICD-10 - H10.45) 10/17/2024 Other chronic allergic conjunctivitis (ICD-10 - H10.45) 09/20/2024 Other chronic allergic conjunctivitis (ICD-10 - H10.45) 08/30/2024 Other chronic allergic conjunctivitis (ICD-10 - H10.45) 07/23/2024 Other chronic allergic conjunctivitis (ICD-10 - H10.45) 06/18/2024 Other chronic allergic conjunctivitis (ICD-10 - H10.45) 05/21/2024 Other chronic allergic conjunctivitis (ICD-10 - H10.45) 05/15/2024 Other chronic allergic conjunctivitis (ICD-10 - H10.45) 05/08/2024 Other chronic allergic conjunctivitis (ICD-10 - H10.45) 04/05/2024 Other chronic allergic conjunctivitis (ICD-10 - H10.45) 03/08/2024 Other chronic allergic conjunctivitis (ICD-10 - H10.45) 02/09/2024 Other chronic allergic conjunctivitis (ICD-10 - H10.45) 01/09/2024 Atopic dermatitis, unspecified (ICD-10 - L20.9) Recurrent rash the chest and neck since October with additional patches present to the hands for years. Seen by Derm previously started on TAC ointment. Given degree of atopy, history c/w atopic dermatitis with potential contact dermatitis aspect. Continue to treat atopic disease as above. Already switched to preservative and dye free products. Continue soak and smear technique with Vanicream. Continue SCIT as above. If symptoms persist, would consider patch testing for additional work-up 12/08/2023 Other chronic allergic conjunctivitis (ICD-10 - H10.45) 01/09/2024 Xerosis cutis (ICD-10 - L85.3) Noted dry skin on exam. Treat as above 01/09/2024 Elevated blood-pressure reading, without diagnosis of hypertension (ICD-10 - R03.0) BP elevated without symptoms of urgency or emergency. Continue serial checks and follow-up with PCP Plan Of Treatment Next Appt Details Provider Name:Yaniv Nunez , 12/20/2024 04:50:00 PM, [address] [facility], [address], [place], [address], Provider Name:Yaniv Patel Enrique , 01/17/2025 04:50:00 PM, [address] [facility], [address], [place], [address], Insurance Providers Payer Name Payer Address Payer Phone Subscriber Number Group Number Insured Name Patient Relationship to Insured Coverage Start Date Coverage End Date [facility] [address] [place] [address] [phone] [id number] Robinson Dominique Spouse - patient is the spouse of the insured Medical (General) History Medical History History ICD Code Allergic rhinitis due to pollen J30.1 Allergic rhinitis due to animal (cat) (d og) hair and dander J30.81 Other allergic rhinitis J30.89 Other chronic allergic conjunctivitis H1 0.45 Atopic dermatitis, unspecified L20.9 Xerosis cutis L85.3 Elevated blood-pressure reading, without diagnosis of hypertension R03.0 Surgical History Surgery Date(Month/Year)
[2024-11-24 10:08] VITALS: BP 135/86; PULSE 89; RESP 17; TEMP 37.4; O2SAT 96
--- NOTE | 2024-11-24 10:34 | ED_ITS ---
HPI - URI/Sore Throat General Chief Complaint: Upper Respiratory Infection Stated Complaint: sinus infection History of Present Illness HPI Narrative: 54-year-old female presents today with complaints of cough, congestion, fatigue , fever, and body aches that started on Tuesday. Patient states Tuesday she had a fever Tuesday no fever was feeling better and then today woke up with 101 fever and feeling worse. Has not been seen by any provider or did not do any home testing. As far she is aware she has no sick contacts. Denies nausea, vomiting, diarrhea. Related Data Home Medications ?Medication ?Instructions ?Recorded ?Confirmed ?Last Taken ?Type cetirizine 10 mg capsule (Zyrtec) 10 mg PO DAILY PRN 09/30/22 12/09/23 Unknown History Allergies Allergy/AdvReac Type Severity Reaction Status Date / Time No Known Allergies Allergy Verified 11/24/24 10:16 Review of Systems Review of Systems: All systems reviewed & are unremarkable except as noted in HPI and below Eyes: Eyes: Reports as per HPI ENT: Reports as per HPI Cardiovascular: Cardiovascular: Reports as per HPI Respiratory: Respiratory: Reports as per HPI Genitourinary: Genitourinary: Reports as per HPI Musculoskeletal: Musculoskeletal: Reports as per HPI Integumentary/Breasts: Skin/Breast: Reports as per HPI Neurologic: Reports as per HPI Psychiatric: Psychiatric: Reports as per HPI Endocrine: Endocrine: Reports as per HPI Hematologic/Lymphatic: Hematologic/Lymphatic: Reports as per HPI Allergic/Immunologic: Allergic/Immunologic: Reports as per HPI PMFSH Past Medical History Medical History Acute sinus infection Surgical History Surgical History Colonoscopy planned (~09/2021) Family History Family History Father Hypertension Mother Heart disease Social History Social History Smoking status: Never smoker Alcohol intake: current Alcohol use details: wine/spirits; 1-3 drinks per week Living arrangements: with family Occupation/Education: occupation 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 [employer] Exam Const: General: cooperative, healthy appearing, comfortable, no acute distress and well developed Orientation/consciousness: patient oriented x3 HENMT: Head: normal to inspection Eyes: General: appearance normal, both eyes and all related structures Resp: Effort & Inspection: normal respiratory effort and able to speak in complete sentences Auscultation: clear to auscultation bilaterally and diminished lung sounds on the left in the lower lung ordaz Cardio: Rate: regular rate Rhythm: regular rhythm Heart sounds: S1 normal heart sound present and S2 normal heart sound present Skin: General skin exam: normal color Neuro: General: patient oriented x3 Cognition (Neuro): normal cognition Speech: normal speech Psych: Mental Status: mental status grossly normal Course Course Level of Care: Express Care Visit Vital Signs Vital signs: Vital Signs Temperature 99.4 F 11/24/24 10:08 Pulse Rate 89 11/24/24 10:08 Respiratory Rate 17 11/24/24 10:08 Blood Pressure 135/86 11/24/24 10:08 Pulse Oximetry 96 11/24/24 10:08 Oxygen Delivery Room Air 11/24/24 10:08 Temperature 99.4 F 11/24/24 10:08 Pulse Rate 89 11/24/24 10:08 Respiratory Rate 17 11/24/24 10:08 Blood Pressure 135/86 11/24/24 10:08 Pulse Oximetry 96 11/24/24 10:08 Oxygen Delivery Room Air 11/24/24 10:08 MDM - URI/Sore Throat MDM Narrative Medical decision making narrative: 54-year-old female HPI started. Differentials include but not limited to URI, sinusitis, viral infection, influenza, COVID, pneumonia. COVID and influenza negative. Chest x-ray shows no acute cardiopulmonary process but a possible 6 mm nodule suggests possible repeat chest x-ray or CT scan. I did discuss this with the patient and she is aware. Copy of a reading was given to her prior to discharge by RN. I suspect viral in nature. Supportive treatment as prescribed. Mucinex DM, albuterol for shortness of breath or wheezing, Flonase, Tylenol ibuprofen for pain or fever Differential Diagnosis Differential diagnosis: Likely upper respiratory infection, sinusitis, viral infection and influenza Medical Records Attestation: I reviewed the patient's medical records. Lab Data Attestation: I reviewed the patient's lab results. Labs: Lab Results 11/24/24 11/24/24 Range/Units 10:41 10:42 POC Influenza A Ag Negative (Negative) POC Influenza B Ag Negative (Negative) POC SARS CoV-2 Ag Negative (Negative) Imaging Data Attestation: I personally reviewed and interpreted this imaging study as follows: Radiologist's impression: Impressions Chest X-Ray 11/24/24 10:53 Impression: Questionable subtle 6 mm right midlung nodule versus nipple shadow. Consider chest CT or repeat exam with nipple marker, to further assess. Discharge Plan Discharge Clinical Impression: Upper respiratory infection, Viral infection Patient Disposition: Home, Self-Care Condition: Stable Instructions: Antibiotic Form, Upper Respiratory Infection (ED) Additional Instructions: Your chest x-ray showed no acute issues today possible 6 mm nodule which I discussed with you follow-up with your primary care provider for that. Your COVID and flu were negative. I suspect you would still have a viral illness antibiotics will not help with that. Treat symptoms as they come about. Follow-up with your primary care provider 1-2 weeks if no improvement. Patient Language: Uzbek Prescriptions: New Mucinex DM 30-600 mg tablet extended release 12 hr 1 tablet PO Q12H PRN (Reason: cough) Qty: 20 0RF albuterol sulfate [Ventolin HFA] 90 mcg/actuation HFA aerosol inhaler 2 puff inhalation QID PRN (Reason: shortness of breath or wheezing) Qty: 8.5 0RF fluticasone propionate [24 Hour Allergy Relief] 50 mcg/actuation spray,suspension 2 spray intranasal DAILY Qty: 16 0RF Rx Instructions: administer into each nostril No Action Zyrtec 10 mg capsule 10 mg PO DAILY PRN Follow-up/Referrals: UNKNOWN,DOCTOR [Primary Care Provider] - Time of Disposition: 11:21
[2024-11-24 10:43] LABS: EDINFLUASCREEN Negative (Negative); EDINFLUBSCREEN Negative (Negative)
[2024-11-24 10:43] LABS: EDCOVIDSCREEN Negative (Negative)
== END 2024-11-24 11:28 | disposition home or self-care (01) ==
PROVIDERS: Emergency Provider Nurse Practitioner Family
DX: J06.9 Acute upper respiratory infection, unspecified (principal); B34.9 Viral infection, unspecified; Z20.822 Contact with and (suspected) exposure to COVID-19
CPT/HCPCS: 71046; 87426; 87804; 99213; G0463